=== PATIENT | female | born 1995 | race Hispanic/Latino ===

== ENCOUNTER 2018-08-12 23:45 | Inpatient (IN) | payer OTHER, BC ==
[2018-08-13 00:20] LABS: SQUAMOUS EPITHIAL < 1 /hpf (0-5); URINE AMORPHOUS SEDIMENT RARE /ul (<OCC); URINE BILIRUBIN NEGATIVE (NEGATIVE); URINE BLOOD NEGATIVE (NEGATIVE); URINE CLARITY Hazy (Clear); URINE COLOR Yellow (YELLOW); URINE GLUCOSE (UA) NORMAL (Normal); URINE LEUKOCYTE ESTERASE NEG Leu/uL (Negative); URINE PROTEIN NEGATIVE (NEGATIVE); URINE UROBILINOGEN NORMAL mg/dL (0.2-1.0)
[2018-08-13 00:21] LABS: HCG,QUALITATIVE URINE NEGATIVE (NEGATIVE)
[2018-08-13] MEDS ORDERED: Sodium Chloride 0.9% 1,000 ML IV ONE ×2 (00:21→03:16)
--- NOTE | 2018-08-13 00:21 | C.PDOC ---
History Of Present Illness 22 year old female presents to the ED c/o right side flank/RLQ abdominal pain associated with nausea and vomiting that started yesterday. Patient states that pain worsened today. Patient states her pain is sharp, stabbing, 5/10. Patient denies fever, chills, diarrhea, rash, CP, SOB, injury, fall, trauma, dysuria, hematuria. Time Seen by Provider: 08/13/18 00:19 Chief Complaint (Nursing): Abdominal Pain History Per: Patient History/Exam Limitations: no limitations Onset/Duration Of Symptoms: Days Current Symptoms Are (Timing): Still Present Context: Other Severity: Severe Pain Scale Rating Of: 7 Location Of Pain/Discomfort: RLQ Radiation Of Pain To:: Flank Quality Of Discomfort: "Pain" Associated Symptoms: Nausea, Vomiting. denies: Diarrhea, Urinary Symptoms Exacerbating Factors: None Alleviating Factors: None Recent travel outside of the [place]: No Additional History Per: Patient Abnormal Vaginal Bleeding: No Past Medical History Reviewed: Historical Data, Nursing Documentation, Vital Signs Vital Signs: Last Vital Signs Temp 97.6 F 08/12/18 23:49 Pulse 67 08/12/18 23:49 Resp 16 08/12/18 23:49 BP 128/92 H 08/12/18 23:49 Pulse Ox 98 08/12/18 23:49 - Medical History PMH: No Chronic Diseases Surgical History: No Surg Hx Family History: States: Unknown Family Hx - Social History Hx Alcohol Use: Yes Hx Substance Use: No - Immunization History Hx Tetanus Toxoid Vaccination: No Hx Influenza Vaccination: No Hx Pneumococcal Vaccination: No Review Of Systems Constitutional: Negative for: Fever, Chills Cardiovascular: Negative for: Chest Pain Respiratory: Negative for: Shortness of Breath Gastrointestinal: Positive for: Nausea, Vomiting, Abdominal Pain Genitourinary: Negative for: Dysuria, Hematuria Musculoskeletal: Negative for: Back Pain Skin: Negative for: Rash Neurological: Negative for: Weakness, Numbness Physical Exam - Physical Exam Appears: Non-toxic, No Acute Distress Skin: Warm, Dry Head: Normacephalic Eye(s): bilateral: Normal Inspection Oral Mucosa: Moist Neck: Supple Chest: Symmetrical Cardiovascular: Rhythm Regular Respiratory: No Rales, No Rhonchi, No Wheezing Gastrointestinal/Abdominal: Soft, Tenderness (RLQ), No Distention, No Guarding, No Rebound Back: No CVA Tenderness Extremity: Normal ROM Extremity: Bilateral: Atraumatic, Normal Color And Temperature, Normal ROM Neurological/Psych: Oriented x3, Normal Speech, Normal Cognition Gait: Steady ED Course And Treatment - Laboratory Results Result Diagrams: 08/13/18 00:22 08/13/18 00:22 Lab Results: Urine Color Yellow (YELLOW) 08/13/18 00:12 Urine Clarity Hazy (Clear) 08/13/18 00:12 Urine pH 7.0 (5.0-8.0) 08/13/18 00:12 Ur Specific [place] 1.021 (1.003-1.030) 08/13/18 00:12 Urine Protein Negative mg/dL (NEGATIVE) 08/13/18 00:12 Urine Glucose (UA) Normal mg/dL (Normal) 08/13/18 00:12 Urine Ketones Negative mg/dL (NEGATIVE) 08/13/18 00:12 Urine Blood Negative (NEGATIVE) 08/13/18 00:12 Urine Nitrate Negative (NEGATIVE) 08/13/18 00:12 Urine Bilirubin Negative (NEGATIVE) 08/13/18 00:12 Urine Urobilinogen Normal mg/dL (0.2-1.0) 08/13/18 00:12 Ur Leukocyte Esterase Neg [place]/uL (Negative) 08/13/18 00:12 Urine WBC (Auto) 3 /hpf (0-5) 08/13/18 00:12 Urine RBC (Auto) < 1 /hpf (0-3) 08/13/18 00:12 Ur Squamous Epith Cells < 1 /hpf (0-5) 08/13/18 00:12 Amorphous Sediment Rare /ul (<OCC) H 08/13/18 00:12 Urine HCG, Qual Negative (NEGATIVE) 08/13/18 00:12 Urine HCG, Qual Negative (NEGATIVE) 08/13/18 00:12 O2 Sat by Pulse Oximetry: 98 (ON RA) Pulse Ox Interpretation: Normal - CT Scan/US CT abd/pelvis Other Rad Studies (CT/US): Read By Radiologist, Radiology Report Reviewed CT/US Interpretation: CT SCAN OF THE ABDOMEN AND PELVIS WITH CONTRAST. CLINICAL HISTORY: Abdominal pain. TECHNIQUE: Multiple axial and coronal CT images were obtained through the abdomen and pelvis after administration of intravenous contrast material. COMMENTS: Enlarged appendix measuring 1.5 centimeters in its largest transverse dimension. Diffuse enhancement of its wall and prominent surrounding inflammatory fat stranding. Mild amount of free pelvic fluid. No evidence of perforation. No evidence of abscess formation. Uncomplicated colonic diverticulosis. Constipation. Mild reactive gastroparesis/ileus. The liver is of uniform attenuation without mass or defect. There is no intra or extrahepatic biliary ductal dilatation. The spleen is normal. The gallbladder is within normal limits. The pancreas is of normal contour and attenuation characteristics. There is no evidence of adrenal mass. Both kidneys demonstrate prompt and equal nephrograms. The kidneys are normal in size, shape and configuration. There is no evidence of renal or ureteral mass. No renal or ureteral calculi are identified. There is no hydroureter or hydronephrosis. There is no bowel wall thickening. No evidence for small or large bowel obstruction. There is no evidence of abdominal ascites or lymphadenopathy. There is no evidence of intrinsic or extrinsic bladder mass. There is no pelvic ascites or lymphadenopathy. Images of the lung bases show no evidence of pleural or parenchymal mass. There are no pleural effusions. The bony structures are free of lytic or blastic lesions. IMPRESSION: Enlarged appendix measuring 1.5 centimeters in its largest transverse dimension. Diffuse enhancement of its wall and prominent surrounding inflammatory fat stranding. Uncomplicated acute appendicitis. Mild amount of free pelvic fluid. No evidence of perforation. No evidence of abscess formation. Uncomplicated colonic diverticulosis. Constipation. Mild reactive gastroparesis/ileus. Thank you for your kind referral of this patient. . Electronically signed on Aug 13, 2018 1:59:16 AM EST by: Joel Edmonds M.D., Certified by ABR, MSK, Neuroradiology Progress Note: Plan: - CT abd/pelvis. - Labs. - Morphine 4 mg IVP. - Pepcid 20 mg IVP. - IV fluids. - Toradol 30 mg IVP. - Zofran 4 mg IVP. - UA. Spoke with dr Cunningham. Will see the pt in am. Disposition Discussed With : Guanaco Jenkins Comment: accepted the pt on his service and took over the care at 3:17 AM Doctor Will See Patient In The: Hospital Counseled Patient/Family Regarding: Studies Performed, Diagnosis - Disposition Disposition: HOSPITALIZED Disposition Time: 00:21 Condition: FAIR Forms: Triggit (Guyanese) - POA Present On Arrival: None - Clinical Impression Clinical Impression: Abdominal pain, Acute appendicitis - Scribe Statement The provider has reviewed the documentation as recorded by the Scribe Darrick Vallejo All medical record entries made by the Nilaibe were at my direction and personally dictated by me. I have reviewed the chart and agree that the record accurately reflects my personal performance of the history, physical exam, medical decision making, and the department course for this patient. I have also personally directed, reviewed, and agree with the discharge instructions and disposition.
[2018-08-13 00:27] LABS: BASO # 0.1 K/uL (0.0-0.2); BASO % 0.4 % (0.0-2.0); EOS % 0.2 % (0.0-4.0); HEMOGLOBIN 13.9 g/dL (11.0-16.0); LYMPH # 2.1 K/uL (1.0-4.3); LYMPH % 16.6 % (20.0-40.0); MEAN CELL VOLUME 91.7 fL (81.0-99.0); MEAN CORPUSCULAR HEMOGLOBIN 31.2 pg (27.0-31.0); MEAN PLATELET VOLUME 7.9 fL (7.2-11.7); MONO % 7.7 % (0.0-10.0); NEUT # 9.7 K/uL (1.8-7.0); NEUT % 75.1 % (50.0-75.0); RBC 4.46 Mil/uL (3.80-5.20); RED CELL DISTRIBUTION WIDTH 12.2 % (11.5-14.5); WHITE BLOOD COUNT 12.9 K/uL (4.8-10.8)
[2018-08-13 00:40] LABS: ALB/GLOB RATIO 1.7 (1.0-2.1); ALBUMIN 4.9 g/dL (3.5-5.0); ALT/SGPT 17 U/L (9-52); AST/SGOT 24 U/L (14-36); BLOOD UREA NITROGEN 12 mg/dL (7-17); GFR NON-AFRICAN AMERICAN > 60; LIPASE 67 U/L (23-300)
[2018-08-13] MEDS ORDERED: Piperacillin/Tazobact 3.375 gm 100 ML IVPB STA (00:41)
[2018-08-13] MEDS ORDERED: Piperacillin/Tazobact 3.375 gm 100 ML IVPB ONE ×2 (00:49→14:35)
[2018-08-13] MEDS ORDERED: Morphine 4 MG/ML VIAL ONE (01:04)
[2018-08-13] MEDS ORDERED: Iodixanol 320 MG/ML 100 ML BOTTLE IV ONE (01:29)
[2018-08-13 09:43] LABS: INR 1.1; PROTHROMBIN TIME 12.4 SECONDS (9.7-12.2)
--- NOTE | 2018-08-13 11:13 | CT ---
Date of service: 08/13/2018 PROCEDURE: CT Abdomen and Pelvis with contrast HISTORY: rlq pain COMPARISON: None. TECHNIQUE: Contrast dose: 100 mL Visipaque 320 Radiation dose: Total exam DLP = 684.64 mGy-cm. This CT exam was performed using one or more of the following dose reduction techniques: Automated exposure control, adjustment of the mA and/or kV according to patient size, and/or use of iterative reconstruction technique. FINDINGS: LOWER THORAX: Unremarkable. LIVER: Unremarkable. No gross lesion or ductal dilatation. GALLBLADDER AND BILE DUCTS: Unremarkable. PANCREAS: Unremarkable. No gross lesion or ductal dilatation. SPLEEN: Unremarkable. ADRENALS: Unremarkable. No mass. KIDNEYS AND URETERS: Unremarkable. No hydronephrosis. No solid mass. VASCULATURE: Unremarkable. No aortic aneurysm. No aortic atherosclerotic calcification or mural plaque present. BOWEL: Unremarkable. No obstruction. No gross mural thickening. APPENDIX: Thick-walled dilated appendix measuring up to 1.4 cm with radiopaque appendicular and extensive surrounding periappendiceal stranding. PERITONEUM: Unremarkable. No free fluid. No free air. LYMPH NODES: Unremarkable. No enlarged lymph nodes. BLADDER: Unremarkable. REPRODUCTIVE: Small volume free pelvic fluid BONES: No acute fracture. OTHER FINDINGS: None. IMPRESSION: Acute appendicitis. No evidence of perforation or abscess formation.
[2018-08-13] MEDS ORDERED: Rocuronium 10 mg/ml (5 ml) ONE (14:21)
[2018-08-13] MEDS ORDERED: Propofol 10 mg/ml Inj (20 ML) ONE (14:21)
[2018-08-13] MEDS ORDERED: Succinylcholine Chloride 20 mg/ml Syr (5 ml) IV ONE (14:21)
[2018-08-13] MEDS ORDERED: Midazolam 2 MG/2 ML VIAL ONE (14:22)
[2018-08-13] MEDS ORDERED: ePHEDrine 50 mg/ml Inj ONE (14:45)
[2018-08-13] MEDS ORDERED: Bupivacaine 0.25% 20 ML INJ IJ ONE (14:47)
[2018-08-13] MEDS ORDERED: Lidocaine/Epinephrine 1% 1:100000 10 ML IJ ONE (14:47)
[2018-08-13] MEDS ORDERED: Neostigmine 1:1000 (1 mg/ml) Inj ONE (16:08)
[2018-08-13] MEDS ORDERED: HYDROmorphone 0.5 mg/0.5 ml ISec IVP PRN ×2 (16:16→20:17)
[2018-08-13] MEDS ORDERED: Lactated Ringer's 1,000 ML IV ONE (16:30)
[2018-08-13] MEDS: Sodium Chloride 0.9% 1,000 ML IV SCH ×2 (16:30→16:45)
--- NOTE | 2018-08-13 16:39 | PCM.SURG1 ---
Surgeon's Initial Post Op Note - Surgeon's Notes Surgeon: Austen Crowe MD Sports Administrator: Dr. Dickinson Type of Anesthesia: General Endo Pre-Operative Diagnosis: Acute Appendicitis with leucocytosis Operative Findings: Acute Phlegmoneous Appendicits. Pelvic Abscess. Extensive Post inflammatory adhesions Post-Operative Diagnosis: Acute Phlegmoneous Appendicits. Pelvic Abscess. Extensive Post inflammatory adhesions Operation Performed: Lap Appendectomy. Lap Drainage of pelvic abscess and collections. Lap Enterolysis and Lysis of adhesions Specimen/Specimens Removed: Appendix Estimated Blood Loss: EBL {In ML}: 50 Blood Products Given: N/A Drains Used: Taran Post-Op Condition: Good Date of Surgery/Procedure: 08/13/18 Time of Surgery/Procedure: 16:39
[2018-08-13] MEDS ORDERED: HYDROmorphone 0.5 mg/0.5 ml ISec ONE (16:50)
--- NOTE | 2018-08-13 17:27 | CP.PCM.HP ---
History of Present Illness - History of Present Illness History of Present Illness: 22-year-old female patient with no significant past medical history presents to ED with sharp, stabbing, 5/10 RLQ abdominal pain associated with nausea and vomiting since yesterday. No history of fever, chills, diarrhea, CP, SOB, inju ry, fall, trauma, hematuria. Present on Admission - Present on Admission Any Indicators Present on Admission: No Past Patient History - Past Social History Smoking Status: Never Smoked - MUSCULOSKELETAL/RHEUMATOLOGICAL Hx Falls: No - PSYCHIATRIC Hx Substance Use: No - SURGICAL HISTORY Hx Tonsillectomy: Yes (AGE 9) - ANESTHESIA Hx Anesthesia: Yes Hx Anesthesia Reactions: No Meds Home Medications: Home Medication List Medication Instructions Recorded Confirmed Type Amoxicillin/Clavulanate [Augmentin 1 tab PO BID #14 tab 08/14/18 Rx 875 MG-125 MG] Docusate Sodium [Colace] 100 mg PO DAILY #10 capsule 08/14/18 Rx oxyCODONE/Acetaminophen [Percocet 1 ea PO Q6 PRN #12 tab 08/14/18 Rx 5/325 mg Tab] Allergies/Adverse Reactions: Allergies Allergy/AdvReac Type Severity Reaction Status Date / Time codeine Allergy Verified 08/12/18 23:51 Results - Vital Signs Recent Vital Signs: Last Vital Signs Temp 99.3 F 08/13/18 16:30 Pulse 63 08/13/18 17:15 Resp 15 08/13/18 17:15 BP 103/47 L 08/13/18 17:15 Pulse Ox 98 08/13/18 17:15 - Labs Result Diagrams: 08/14/18 07:18 08/14/18 07:18 Labs: Laboratory Results - last 24 hr 08/13/18 08/13/18 08/13/18 00:12 00:22 00:22 WBC 12.9 H RBC 4.46 Hgb 13.9 Hct 40.9 MCV 91.7 MCH 31.2 H MCHC 34.0 RDW 12.2 Plt Count 292 MPV 7.9 Neut % (Auto) 75.1 H Lymph % (Auto) 16.6 L [place] % (Auto) 7.7 Eos % (Auto) 0.2 Baso % (Auto) 0.4 Neut # (Auto) 9.7 H Lymph # (Auto) 2.1 [place] # (Auto) 1.0 H Eos # (Auto) 0.0 Baso # (Auto) 0.1 PT INR APTT Sodium 140 Potassium 3.6 Chloride 102 Carbon Dioxide 25 Anion Gap 16 BUN 12 Creatinine 0.8 Est GFR ( Amer) > 60 Est GFR (Non-Af Amer) > 60 Random Glucose 100 Calcium 10.0 Total Bilirubin 0.9 AST 24 ALT 17 Alkaline Phosphatase 68 Total Protein 7.8 Albumin 4.9 Globulin 2.9 Albumin/Globulin Ratio 1.7 Lipase 67 Urine Color Yellow Urine Clarity Hazy Urine pH 7.0 Ur Specific [place] 1.021 Urine Protein Negative Urine Glucose (UA) Normal Urine Ketones Negative Urine Blood Negative Urine Nitrate Negative Urine Bilirubin Negative Urine Urobilinogen Normal Ur Leukocyte Esterase Neg Urine WBC (Auto) 3 Urine RBC (Auto) < 1 Ur Squamous Epith Cells < 1 Amorphous Sediment Rare H Urine HCG, Qual Negative 08/13/18 09:10 WBC RBC Hgb Hct MCV MCH MCHC RDW Plt Count MPV Neut % (Auto) Lymph % (Auto) [place] % (Auto) Eos % (Auto) Baso % (Auto) Neut # (Auto) Lymph # (Auto) [place] # (Auto) Eos # (Auto) Baso # (Auto) PT 12.4 H INR 1.1 APTT 36 H Sodium Potassium Chloride Carbon Dioxide Anion Gap BUN Creatinine Est GFR ( Amer) Est GFR (Non-Af Amer) Random Glucose Calcium Total Bilirubin AST ALT Alkaline Phosphatase Total Protein Albumin Globulin Albumin/Globulin Ratio Lipase Urine Color Urine Clarity Urine pH Ur Specific [place] Urine Protein Urine Glucose (UA) Urine Ketones Urine Blood Urine Nitrate Urine Bilirubin Urine Urobilinogen Ur Leukocyte Esterase Urine WBC (Auto) Urine RBC (Auto) Ur Squamous Epith Cells Amorphous Sediment Urine HCG, Qual
[2018-08-13] MEDS: Piperacill/Tazo 2.25gm in Dex 2.25 GM/50 ML BAG IVPB SCH ×2 (18:00→22:01)
[2018-08-13 18:31] VITALS: RESP 20
[2018-08-13] MEDS ORDERED: Oxycodone/Acetaminophen 5/325 mg Tab PO PRN (20:17)
[2018-08-13] MEDS ORDERED: Sodium Chloride 0.9% 1,000 ML IV SCH (20:50)
--- NOTE | 2018-08-14 00:56 | OP ---
PROCEDURE DATE: 08/13/2018 PREOPERATIVE DIAGNOSES: 1. Acute appendicitis. 2. Leukocytosis. 3. Abdominal pain. POSTOPERATIVE DIAGNOSES: 1. Acute phlegmonous appendicitis. 2. Pelvic abscess and multiple intraperitoneal collections. 3. Extensive postinflammatory adhesions. PROCEDURE DONE: 1. Laparoscopic appendectomy. 2. Laparoscopic drainage of pelvic abscess and pelvic collections. 3. Laparoscopic enterolysis and lysis of adhesion. SURGEON: Gurvinder Crowe MD CHROME POLISHER: Kip Dickinson MD ANESTHESIA: General endotracheal tube anesthesia. ESTIMATED BLOOD LOSS: Around 50 mL. DRAINS: A 15-Tai[place]ese Taran drain was placed. COMPLICATIONS: None. INTRAOPERATIVE FINDINGS: The patient had acute phlegmonous paracecal appendicitis with extremely thickened edematous appendix with large phlegmon of the cecum and appendix as well as ileum in the right lower quadrant and the patient also had pelvic collections as well as extensive intraabdominal collections. DESCRIPTION OF PROCEDURE: On intraoperative steps, this is a 22-year-old female who was diagnosed with acute appendicitis with leukocytosis, and the patient was consented for the laparoscopic appendectomy possible open, brought to the OR, placed supine on operating table. After induction of anesthesia, the abdomen was prepped and draped in usual sterile fashion. Supraumbilical transverse incision was made using open technique, a Miguel Ángel port was placed. Pneumo was created. Another two 5-mm and 12-mm ports were placed in the left lower quadrant and suprapubic region. Grasper and dissector was introduced. The patient was found to have a large phlegmonous mass of the omentum, cecum, appendix as well as the ileum. First, extensive lysis of adhesion was done to identify the cecum base. The appendix was completely plastered into the paracecal area and the right side of the colon was mobilized and the base of the appendix was identified. Meanwhile pelvic collections were drained, pelvic abscess was also drained and the multiple periappendicular collections were also drained and suctioned out. Now, the base of the appendix was dissected to identify the further appendix and the dissection was continued up to the tip of the appendix and the mesoappendix was resected with harmonic scalpel. The base of the appendix was resected with a MEGAN. The hemostasis was achieved. The pelvic area, periappendicular area and perihepatic areas were suction irrigated and all the fluid was suctioned out. After proper hemostasis, the 15-Taiwanese Taran drain was placed. All the port was taken out under vision. Pneumo was deflated. Umbilical port site was closed in two layers, the fascia with 0 Vicryl interrupted sutures, skin with 4-0 Monocryl and dry sterile dressing was applied. The patient tolerated procedure well. Count of instrument and gauze was correct. There was no apparent complication. The patient was extubated in OR and sent to the postanesthesia care unit in stable condition. Gurvinder Crowe MD
[2018-08-14 01:07] VITALS: TEMP 97.8
[2018-08-14] MEDS: Piperacill/Tazo 2.25gm in Dex 2.25 GM/50 ML BAG IVPB SCH ×2 (05:06→10:30)
[2018-08-14 07:28] LABS: BASO % 0.4 % (0.0-2.0); EOS # 0.1 K/uL (0.0-0.7); EOS % 0.8 % (0.0-4.0); LYMPH # 1.9 K/uL (1.0-4.3); LYMPH % 20.6 % (20.0-40.0); MEAN CORPUSCULAR HEMOGLOBIN 31.8 pg (27.0-31.0); MEAN CORPUSCULAR HGB CONC 34.5 g/dL (33.0-37.0); MEAN PLATELET VOLUME 7.7 fL (7.2-11.7); MONO # 0.6 K/uL (0.0-0.8); MONO % 6.4 % (0.0-10.0); NEUT # 6.6 K/uL (1.8-7.0); NEUT % 71.8 % (50.0-75.0); NRBC % 0.1 % (0.0-2.0); RBC 3.78 Mil/uL (3.80-5.20); RED CELL DISTRIBUTION WIDTH 12.5 % (11.5-14.5); WHITE BLOOD COUNT 9.2 K/uL (4.8-10.8)
[2018-08-14 07:54] LABS: ALB/GLOB RATIO 1.4 (1.0-2.1); ALBUMIN 3.6 g/dL (3.5-5.0); ALT/SGPT 16 U/L (9-52); AST/SGOT 28 U/L (14-36); BLOOD UREA NITROGEN 7 mg/dL (7-17); CALCIUM 8.4 mg/dl (8.6-10.4); GFR NON-AFRICAN AMERICAN > 60
--- NOTE | 2018-08-14 08:10 | CP.PCM.PN ---
<Judy Crandall - Last Filed: 08/14/18 08:30> Subjective - Date & Time of Evaluation Date of Evaluation: 08/14/18 Time of Evaluation: 07:00 - Subjective Subjective: GENERAL SURGERY PROGRESS NOTE FOR DR. CROWE Patient seen and examined at bedside. She has only mild post operative pain. Took 1 percocet overnight. Tolerating diet, denies nausea or vomiting. Is voiding post surgery. She is ambulating to bathroom and using her IS. Objective - Vital Signs/Intake and Output Vital Signs (last 24 hours): Temp Pulse Resp BP Pulse Ox 97.8 F 57 L 20 96/59 L 98 08/13/18 23:15 08/13/18 23:15 08/13/18 23:15 08/13/18 23:15 08/13/18 23:15 Intake and Output: 08/14/18 08/14/18 06:59 18:59 Intake Total 1090 Output Total 60 Balance 1030 - Medications Medications: Current Medications Hydromorphone HCl (Dilaudid) 0.5 mg IVP Q4H PRN PRN Reason: Pain, severe (8-10) Piperacillin Sod/Tazobactam Sod (Zosyn 2.25 Gm Iv Premix) 2.25 gm in 50 mls @ 100 mls/hr IVPB Q6H LEXX; Protocol Last Admin: 08/14/18 05:06 Dose: 100 mls/hr Sodium Chloride (Sodium Chloride 0.9%) 1,000 mls @ 50 mls/hr IV .Q20H LEXX Last Admin: 08/13/18 22:00 Dose: 50 mls/hr Ondansetron HCl (Zofran Inj) 4 mg IVP Q4 PRN PRN Reason: Nausea/Vomiting Oxycodone/Acetaminophen (Percocet 5/325 Mg Tab) 1 tab PO Q4H PRN PRN Reason: Pain, moderate (4-7) Stop: 08/16/18 20:18 Last Admin: 08/14/18 05:09 Dose: 1 tab - Labs Labs: 08/14/18 07:18 08/14/18 07:18 PT 12.4 SECONDS (9.7-12.2) H 08/13/18 09:10 INR 1.1 08/13/18 09:10 APTT 36 SECONDS (21-34) H 08/13/18 09:10 - Constitutional Appears: Non-toxic, No Acute Distress - Head Exam Head Exam: ATRAUMATIC, NORMAL INSPECTION - Eye Exam Eye Exam: EOMI, Normal appearance - Respiratory Exam Respiratory Exam: NORMAL BREATHING PATTERN. absent: Respiratory Distress - Cardiovascular Exam Cardiovascular Exam: +S1, +S2 - GI/Abdominal Exam GI & Abdominal Exam: Soft, Tenderness (very mild kenneth-incisional tenderness). absent: Distended, Firm, Guarding, Rigid, Rebound Additional comments: Dressings clean/dry/intact Taran drain in place with 60cc serosanguinous output since surgery yesterday afternoon - Neurological Exam Neurological Exam: Alert, Awake, Oriented x3 - Psychiatric Exam Psychiatric exam: Normal Affect, Normal Mood - Skin Skin Exam: Normal Color, Warm Assessment and Plan - Assessment and Plan (Free Text) Assessment: 22yo F with acute appendicitis s/p laparoscopic appendectomy POD#1 - Afebrile, VSS - WBC 9.2 (from 12.9 yesterday) - Taran drain with 60cc serosanguinous output since OR - will remove - Tolerating diet - Will DC IV fluids - Clear for DC home from surgical standpoint - Discussed plan with Dr. Amrita Crandall PGY-4 DC instructions - May remove band aids on POD#5 - Leave white steri strips in place, they will fall off on their own over time - May shower after band aids removed (may spot bathe in meantime) - Do not take a bath or swim for 2 weeks - Avoid heavy lifting for 4 weeks <Gurvinder Crowe - Last Filed: 08/14/18 20:02> Objective - Vital Signs/Intake and Output Vital Signs (last 24 hours): Temp Pulse Resp BP Pulse Ox 97.8 F 66 20 97/57 L 97 08/14/18 07:40 08/14/18 07:40 08/14/18 07:40 08/14/18 07:40 08/14/18 07:40 - Labs Labs: 08/14/18 07:18 08/14/18 07:18 PT 12.4 SECONDS (9.7-12.2) H 08/13/18 09:10 INR 1.1 08/13/18 09:10 APTT 36 SECONDS (21-34) H 08/13/18 09:10 Attending/Attestation - Attestation I have personally seen and examined this patient.: Yes I have fully participated in the care of the patient.: Yes I have reviewed all pertinent clinical information, including history, physical exam and plan: Yes Notes (Text): Pt was seen and examined at bedside Agree with above note and assessment Pt is improving clinically Can be DC home DC drain Po antibiotics c.w current mx Plan d.w pt in detail Risk and benefit explained in detail.
[2018-08-14 08:17] VITALS: BP 97/57; PULSE 66; O2SAT 97
--- NOTE | 2018-08-15 04:10 | CON ---
DATE: 08/13/2018 The consultation is done by ok, Dr. Crowe. The consultation is called by Dr. Kalin Jenkins. REASON FOR CONSULTATION: This is a 22-year-old female with acute appendicitis and abdominal pain. CHIEF COMPLAINT: The patient is a 22-year-old female with complaint of abdominal pain since last one day. HISTORY OF PRESENT ILLNESS: This is a 22-year-old female with a complaint of right lower quadrant pain since last one day and the patient described pain as 5/10, intermittent dull pain, and at present, the patient's pain is relieved with IV analgesics. The patient denies any nausea, vomiting, diarrhea, constipation, and shortness of breath. No fever. The patient had no similar episode in the past. PAST MEDICAL HISTORY: None. PAST SURGICAL HISTORY: Tonsillectomy. MEDICATIONS: Reviewed. ALLERGIES: NO KNOWN DRUG ALLERGIES. SOCIAL HISTORY: Denies alcohol, drug, and smoking. REVIEW OF SYSTEMS: All 13-system reviewed. GASTROINTESTINAL SYSTEM: Positive for abdominal pain. Negative for nausea or vomiting. CARDIOVASCULAR SYSTEM: Negative for cough, shortness of breath, and chest pain. The rest of the systems is pertinent negative except HPI. PHYSICAL EXAMINATION: GENERAL: The patient is not in acute distress. VITAL SIGNS: Temperature is 97.8, pulse 57, blood pressure is 96/59. HEENT: Eyes; PERRLA. Normal eye movement. No pallor. No icterus. NECK: Supple. There is no lymphadenopathy. No thyromegaly. Trachea is in midline. CARDIOVASCULAR SYSTEM: S1 and S2 is normal. There is no murmur. Regular rate and rhythm. PULMONARY SYSTEM: Bilateral equal air entry. There is no crackle, no rhonchi, no wheezing. ABDOMEN: Abdomen is soft and tender in right lower quadrant. No guarding. No rebound. NEUROLOGIC SYSTEM: Alert and oriented x3. Eron Coma Scale is 15. There is no focal deficit. EXTREMITIES: 2+ palpable pulses. No edema. No deformity. SKIN: Warm and dry. No ulceration. No rash. No open wound. LABORATORY DATA: White blood cell count is 12.9. Rest of the lab is within normal limits. The CT scan of the abdomen and pelvis are reviewed and indicated a history of acute appendicitis. ASSESSMENT: This is a 22-year-old female with acute appendicitis with leucocytosis. PLAN: OR for laparoscopic appendectomy, possible open. The consent from the patient. IV antibiotics, n.p.o, IV fluids. Plan discussed with the patient. Risks and benefits explained to the patient as well as to the mother. Gurvinder Crowe MD
== END 2018-08-14 12:48 | disposition home or self-care (01) | DRG 336 ==
LOC: C.ER 23:45 → C.6T 08-13 03:13
PROVIDERS: ADMIT Internal Medicine Nephrology; ATTEND Internal Medicine Nephrology
PROC: 0DNW4ZZ Release Peritoneum, Percutaneous Endoscopic Approach (ICD-10-PCS; 2018-08-13)
PROC: 0W9J4ZZ Drainage of Pelvic Cavity, Percutaneous Endoscopic Approach (ICD-10-PCS; 2018-08-13)
PROC: 0DTJ4ZZ Resection of Appendix, Percutaneous Endoscopic Approach (ICD-10-PCS; principal; 2018-08-13 13:00)
DX: K35.33 Acute appendicitis with perforation, localized peritonitis, and gangrene, with abscess (principal); N73.0 Acute parametritis and pelvic cellulitis; N73.6 Female pelvic peritoneal adhesions (postinfective)